=== PATIENT | male | born 1980 | race Caucasian/White ===

== ENCOUNTER 2016-09-21 23:14 | Inpatient (IN) | payer OTHER ==
[~2016-09-21] VITALS: Ht 170.2 cm; Wt 63.7 kg
[2016-09-21 23:30] VITALS: BP 129/79
--- NOTE | 2016-09-21 23:40 | NUR ---
DERRICK MEI CALLED AND VERBAL REPORT GIVEN OVER THE PHONE ABOUT PT THREATS OF HURTING HIMSELF AND OTHERS.
--- NOTE | 2016-09-21 23:46 | NUR ---
SECURITY WITH PATIENT
--- NOTE | 2016-09-22 | NUR ---
PT TAKEN TO [facility]
--- NOTE | 2016-09-22 00:09 | NUR ---
[place] [employer] WITH PATIENT
--- NOTE | 2016-09-22 00:46 | NUR ---
PT PLACED ON A 5150 HOLD BY DERRICK MEI
--- NOTE | 2016-09-22 01:06 | NUR ---
PT MOVED TO BED 7
--- NOTE | 2016-09-22 01:12 | NUR ---
36 Y/O M W/C/O ANXIETY AFTER SOMEONE TOOK HIM HOSTAGE IN HIS OWN APPARTMENT. PT STATES THIS PERSON TOOK [employer] AND THREATEN HIM TO KILL FAMILY WELL. PT STATES CALLED PD AND HE DIDNT WAIT FOR THEM. HE DECIDED TO COME HERE. PT STATES HAS A HX OF METH USED. ALTERED, AND SCARED AT THE MOMENT. ER MADE AWARE. PT STATES TO HAS THOUGHTS OF HURTING HIMSELF AND OTHERS. MED HX HIV.
--- NOTE | 2016-09-22 01:43 | NUR ---
PT PLACED ON RESTRAINTS AFTER ATTEMPTING TO LEAVE FACILITY
--- NOTE | 2016-09-22 01:55 | NUR ---
Dr. Granado evaluating patient at bedside.
--- NOTE | 2016-09-22 02:00 | NUR ---
Note arias in ED - 09/22/16 at 0400 by NOLA Patient appears to be resting comfortably in bed. Vital Signs within normal limits. Respirations even and unlabored.
[2016-09-22] MEDS ORDERED: NACL 0.9% 1,000 ML IV ONE (02:25)
[2016-09-22] MEDS ORDERED: LORazepam 2 MG/ML VIAL IVP ONE (02:25)
--- NOTE | 2016-09-22 02:27 | NUR ---
PHLEB DRAWING LABS AT BEDSIDE
[2016-09-22 02:36] LABS: BASOPHILS # (AUTO) 0.1 K/uL (0.00-0.22); BASOPHILS % (AUTO) 1.1 % (0.0-2.0); EOSINOPHILS # (AUTO) 0.1 K/uL (0-0.4); EOSINOPHILS % (AUTO) 0.5 % (0.0-4.0); HEMATOCRIT 41.1 % (36-52); HEMOGLOBIN 13.7 g/dL (12.0-18.0); LYMPHOCYTES # (AUTO) 1.4 K/uL (2.0-11.5); LYMPHOCYTES % (AUTO) 11.2 % (20.5-51.1); MEAN CORPUSCULAR HEMOGLOBIN 29 pg (27-31); MEAN CORPUSCULAR HGB CONC 33 g/dL (33-37); MEAN CORPUSCULAR VOLUME 87 fL (80-94); MONOCYTES # (AUTO) 0.8 K/uL (0.8-1.0); MONOCYTES % (AUTO) 6.5 % (1.7-9.3); NEUTROPHILS # (AUTO) 10.3 K/uL (1.8-7.7); NEUTROPHILS % (AUTO) 80.7 % (42.2-75.2); PLATELET COUNT (AUTO) 235 K/uL (140-450); RED BLOOD CELL COUNT(AUTO) 4.74 MIL/uL (4.20-6.10); RED CELL DISTRIBUTION WIDTH 12.2 % (11.6-13.7); WHITE BLOOD COUNT (AUTO) 12.7 K/uL (4.8-10.8)
--- NOTE | 2016-09-22 02:40 | NUR ---
Patient appears to be resting comfortably in bed. Vital Signs within normal limits. Respirations even and unlabored.
[2016-09-22 02:47] LABS: APPEARANCE,URINE SL CLOUDY (CLEAR); BILIRUBIN,URINE NEGATIVE (NEGATIVE); BLOOD, URINE TRACE-I (NEGATIVE); COLOR,URINE YELLOW (YELLOW); LEUKOCYTE ESTERASE ,URINE NEGATIVE (NEGATIVE); NITRITE, URINE NEGATIVE (NEGATIVE); PH,URINE 5.5 (5.0-9.0); PROTEIN,URINE NEGATIVE (NEGATIVE); UGLUCOSE NEGATIVE (NEGATIVE); UROBILINOGEN,URINE 0.2 EU/dL (0.2 - 1)
[2016-09-22 02:55] LABS: AMPHETAMINE, URINE POS. ng/ml (NEG <=1000); BACTERIA,URINE FEW /HPF (None Seen); BARBITURATE, URINE NEG. ng/ml (NEG <=200); BENZODIAZEPINE, URINE NEG. ng/mL (NEG <=200); CANNABINOID, URINE NEG. ng/mL (NEG <=50); COCAINE, URINE NEG. ng/mL (NEG <=300); MUCUS,URINE 3+ /LPF (None Seen); OPIATE, URINE NEG. ng/mL (NEG <=2000); PHENCYCLIDINE SCREEN,URINE NEG. ng/mL (NEG <=25); RBC,URINE 0-5 (RARE) /HPF (0-5); SQUAMOUS EPITHELIAL CELL,UR 0-3 (FEW) /LPF (0-3 (FEW)); WBC,URINE 0-5 (RARE) /HPF (0-5)
[2016-09-22 02:59] LABS: ACETAMINOPHEN < 0.5 ug/ml (10-30); ALANINE AMINOTRANSFERASE 36 U/L (16-63); ALBUMIN 3.8 g/dL (3.4-5.0); ALCOHOL, BLOOD < 3 mg/dL (<3); ALKALINE PHOSPHATASE 77 U/L (46-116); ANION GAP 11.7 (8-16); ASPARTATE AMINOTRANSFERASE 21 U/L (15-37); CALCIUM 8.2 mg/dL (8.5-10.1); CARBON DIOXIDE 27.3 mmol/L (21-32); CHLORIDE 104 mmol/L (98-107); CREATININE 1.2 mg/dL (0.7-1.3); GFR ARICAN-AMERICAN 88 mL/min (>90); GFR NON ARICAN-AMERICAN 72 mL/min (>90); GLUCOSE 124 mg/dL (74-106); SALICYLATE < 2.8 mg/dL (2.8-20.0); SODIUM SERUM 139 mmol/L (136-145); TOTAL BILIRUBIN 0.6 mg/dL (0.0-1.0); TOTAL PROTEIN, SERUM 7.3 g/dL (6.4-8.2); UREA NITROGEN, BLOOD 19 mg/dL (7-18)
--- NOTE | 2016-09-22 03:20 | NUR ---
RESTRAINTS REMOVED, PT SLEEPING
--- NOTE | 2016-09-22 04:00 | NUR ---
Patient appears to be resting comfortably in bed. Vital Signs within normal limits. Respirations even and unlabored.
--- NOTE | 2016-09-22 05:00 | NUR ---
Patient appears to be resting comfortably in bed. Vital Signs within normal limits. Respirations even and unlabored.
--- NOTE | 2016-09-22 06:00 | NUR ---
Patient appears to be resting comfortably in bed. Vital Signs within normal limits. Respirations even and unlabored.
--- NOTE | 2016-09-22 07:04 | NUR ---
Patient appears to be resting comfortably in bed. Vital Signs within normal limits. Respirations even and unlabored.
--- NOTE | 2016-09-22 07:19 | NUR ---
Pt report given to MATTEO MATTHEWS . Transfer of care at this time.
--- NOTE | 2016-09-22 07:21 | NUR ---
REPORT RECEIVED BY NIGHT RN CALE. PT SLEEPING IN BED. NL RISE AND FALL OF CHEST. VSS. ER MD MADE. AWARE.
--- NOTE | 2016-09-22 07:33 | NUR ---
Dr. Farley's group notified of requested psych consult.
[2016-09-22] MEDS ORDERED: MORPHINE SULFATE 2 MG/ML SYR IVP PRN (07:40)
[2016-09-22] MEDS ORDERED: ONDANSETRON 4 MG/2 ML VIAL IVP PRN (07:40)
[2016-09-22] MEDS ORDERED: LORazepam 2 MG/ML VIAL IVP PRN (07:40)
[2016-09-22] MEDS ORDERED: ACETAMINOPHEN 325 MG TAB PO PRN (07:40)
--- NOTE | 2016-09-22 08:18 | NUR ---
Patient will be admitted to care of DR. AMBRIZ. Admited to Med/Surg. Will go to room 109-B. Belongings list completed. Report to BYRON DUKE. STS NEED TO SET UP ROOM. STS TO TRANSFER IN 15MINS.
--- NOTE | 2016-09-22 08:30 | NUR ---
PT SLEEPING AT THIS TIME. VSS.
--- NOTE | 2016-09-22 08:40 | NUR ---
ARRIVED ON THE UNIT WITH 2 ER NURSES ON A GURNEY. PT IS ASLEEP. SUPERVISOR GRAPHITE IS GETTING HIM SETTLED IN.
--- NOTE | 2016-09-22 08:40 | NUR ---
PT TAKEN TO 109-B.
[2016-09-22] MEDS ORDERED: ENOXAPARIN 40 MG/0.4 ML SYR SUBQ SCH (09:00)
[2016-09-22 09:52] VITALS: BP 102/62
--- NOTE | 2016-09-22 10:30 | NUR ---
LEFT A VOICEMAIL MESSAGE AT DR. DÍAZ'S NUMBER REGARDING THE CONSULT. FACE SHEET FAXED TO [phone], CONFIRMATION RECEIVED.
--- NOTE | 2016-09-22 10:53 | NUR ---
PT SLEEPING SOUNDLY. SITTER IN ROOM. DIDN'T TOUCH HIS BREAKFAST. JUST SLEEPING. WILL CONTINUE TO MONITOR PT.
--- NOTE | 2016-09-22 11:00 | NUR ---
WOKE UP PT TO ADMINISTER LOVENOX. EXPLAINED PROCEDURE, MEDICATION. PT TOLERATED WELL.
--- NOTE | 2016-09-22 11:42 | NUR ---
PT SLEEPING SOUNDLY. NO SIGNS OF DISTRESS. WILL CONTINUE TO MONITOR PT.
--- NOTE | 2016-09-22 13:33 | NUR ---
PT STILL SLEEPING. DID NOT WAKE UP FOR LUNCH. NO SIGNS OF DISTRESS. SITTER IN THE ROOM. WILL CONTINUE TO MONITOR PT.
--- NOTE | 2016-09-22 13:39 | NUR ---
SS NOTE: SENT PSYCH PLACEMENT INQUIRIES TO: - [facility] (C: [phone]) - [facility] (C: [phone]) - [facility] (C: [phone]) - [facility] (C: [phone])
--- NOTE | 2016-09-22 14:10 | NUR ---
CM NOTE INITIAL REVIEW FAXED TO [facility] [phone] PH MARICRUZ [phone] AUGUST [phone]
--- NOTE | 2016-09-22 15:30 | NUR ---
SS NOTE: I SPOKE WITH PT BEDSIDE. PT STATED THAT HE LIVES AT HOME WITH ROOMMATES. HE ALSO STATED THAT HE IS NOT SUICIDAL AND DOES NOT CURRENTLY RECEIVE OUTPT MENTAL HEALTH SERVICES. I PROVIDED PT WITH OUTPT MENTAL HEALTH RESOURCES AND OFFERED TO PROVIDE HIM WITH HIV RESOURCES BUT PT DECLINED. HE REPORTED THAT HE IS ALREADY CONNECTED TO AN HIV CLINIC.
--- NOTE | 2016-09-22 15:37 | NUR ---
PER PT, DOES NOT WANT ANY VISITORS. ASKED ABOUT AMA. EXPLAINED TO PT THAT HE IS ON A 72 HR HOLD. ONCE THE PSYCHIATRIST CONSULTS, WE WILL KNOW IF PT IS ABLE TO BE RELEASED OR NOT. PT IS HOSTILE. REQUESTED ATIVAN. ATIVAN GIVEN. PT TOLERATED WELL. WILL CONTINUE TO MONITOR PT. SITTER STILL IN THE ROOM.
[2016-09-22 16:00] VITALS: BP 118/69
--- NOTE | 2016-09-22 16:20 | NUR ---
ENDORSED PT TO BYRON GAMEZ. PT IS SLEEPING. NO SIGNS OF DISTRESS. SITTER IN ROOM. V/S STABLE.
--- NOTE | 2016-09-22 16:30 | NUR ---
RECEIVED REPORT FROM RN AT BEDSIDE. PT SLEEPING, NO S/S OF ACUTE DISTRESS, EASILY AWAKENS. NO SUICIDAL IDEATION AT THIS TIME. SITTER AT BEDSIDE. PATIENT DENIES PAIN. CALL LIGHT WITHIN REACH.
--- NOTE | 2016-09-22 18:09 | NUR ---
PATIENT SEEN BY DR. AGOSTO AT BEDSIDE.
--- NOTE | 2016-09-22 18:55 | NUR ---
PATIENT DISCHARGE INSTRUCTIONS GIVEN WITH F/U TEACHING. PATIENT ALERT AND ORIENTED. DENIES SUICIDAL IDEATION. NO S/S OF ACUTE DISTRESS. PATIENT TO BE DISCHARGED HOME VIA CAB.
--- NOTE | 2016-09-22 19:24 | NUR ---
ENDORSED PLAN OF CARE TO NIGHT RN AT PT BEDSIDE. NO S/S OF ACUTE DISTRESS.
--- NOTE | 2016-09-22 19:55 | NUR ---
PT APPEARS ASLEEP BUT AROUSABLE. PT WANTS TO SLEEP MORE BUT INFORMED THAT HE'S ALREADY DISCHARGED. PT SAID "OK". PT'S IV ACCESS REMOVED ON RIGHT AC W/ CANNULA INTACT. WILLOW ANALYST WILL ASSIST W/ CHANGING CLOTHES.
--- NOTE | 2016-09-22 20:15 | NUR ---
PT DISCHARGED VIA WHEELCHAIR AND CAB.
== END 2016-09-22 20:15 | disposition home or self-care (01) | DRG 756 ==
LOC: MED 23:14 → MTU 09-22 08:08
PROVIDERS: ADMIT Hospitalist; ATTEND Hospitalist
DX: R45.851 Suicidal ideations (principal); F32.9 Major depressive disorder, single episode, unspecified; F43.10 Post-traumatic stress disorder, unspecified; F15.10 Other stimulant abuse, uncomplicated; F41.9 Anxiety disorder, unspecified; Z88.0 Allergy status to penicillin
CPT/HCPCS: 36415; 80053; 80305; 81001; 85025; 87081; 96361; 96374; 99285; G0480; G0482; J1650; J2060